=== PATIENT | female | born 1940 | race Caucasian/White ===

== ENCOUNTER 2022-04-14 07:46 | Day surgery (SDC) | payer OTHER ==
--- NOTE | 2022-04-09 15:03 | RAD REPORT ---
EXAM DESCRIPTION: RAD - Chest Pa And Lat (2 Views) - 04/09/2022 2:56 pm CLINICAL HISTORY: Pre op pending lithotripsy Chest pain. COMPARISON: Abdomen 1 View ([facility]) dated 03/05/2022 FINDINGS: The lungs are clear. The heart is upper limit of normal in size. No displaced fractures.
[2022-04-09 16:15] LABS: Lymphocytes % 31.6 % (15.3-44.8); MPV 9.7 fL (7.6-11.3)
[2022-04-09 16:21] LABS: Protime INR 1.38
[2022-04-09 16:24] LABS: Potassium 3.5 mmol/L (3.5-5.1)
[2022-04-14] MEDS ORDERED: Ringers Lactate 1,000 ML IV ONE (08:11)
[2022-04-14] MEDS ORDERED: propofoL 200 MG/20 ML VIAL IV ONE (09:57)
[2022-04-14] MEDS ORDERED: FENTANYL CITR 100 MCG/2 ML ONE (09:58)
[2022-04-14] MEDS ORDERED: LIDOCAINE 1% MPF 5 ML VIAL ONE (09:59)
[2022-04-14] MEDS ORDERED: CEFAZOLIN SODIUM 1 GM/VIAL ONE (10:27)
[2022-04-14] MEDS ORDERED: dexAMETHasone 10 MG/ML VIAL ONE (10:49)
[2022-04-14] MEDS ORDERED: KETOROLAC 30 MG/ML INJ ONE (10:52)
[2022-04-14] MEDS ORDERED: NS 0.9% VIAL 10 ML ONE (10:52)
[2022-04-14] MEDS ORDERED: ONDANSETRON 4 MG/2 ML VIAL ONE (10:52)
[2022-04-14] MEDS ORDERED: EPHEDRINE SULF 50 MG/ML VIAL ONE (10:52)
[2022-04-14] MEDS ORDERED: CODEINE 30MG/APAP 300MG TAB PO PRN (11:22)
[2022-04-14 12:19] VITALS: TEMP 97
[2022-04-14 14:32] VITALS: BP 140/82; O2SAT 98
--- NOTE | 2022-04-14 22:06 | OP ---
Surgeon: ANTONINO FAUSTIN Preoperative Diagnoses: 1.15 mm left nephrolithiasis. 2.Gross hematuria. Postoperative Diagnoses: 1.15 mm left nephrolithiasis. 2.Gross hematuria. Principal Procedures: 1.Left extracorporeal shock wave lithotripsy. a.Approximately 2600 shocks, power 1-7. b.Approximately 400 shocks, power 9. Indication For Procedure: Ms. Schmitt is an 82-year-old woman with multiple medical comorbidities and atrial fibrillation on Xarelto, who last took a dose of it on Wednesday, presents for definitive manage ment of a very large left nonobstructing stone. She had been given permission to hold the Eliquis ac cordingly and since the stone was a likely source of her gross hematuria, having completed negative c ystoscopic evaluation, management of the stone was desirable. Procedure In Detail: The patient was consented in the preoperative holding area before being transfe rred to the operative suite, where general anesthesia was induced. She was placed supine on the proc edure table, padded and secured appropriately, and a water bath was placed beneath her flank. Target ing was then performed fluoroscopically in the AP and left to right dimension and shockwave lithotrip sy was then begun at 1 hertz with a power increase between 1 and 7 over the course of about 500 shock s. Over the course of the next 1500 shocks delivered, the stone was noted to fragment significantly, but the core of the stone seemed to remain somewhat intact though more dissolution. An additional 5 00 shocks was delivered again at 1 hertz after we had increased the rate to 1.5 hertz for the prior 1 500 shocks, and continued shockwave lithotripsy was delivered until approximately 2600 shocks had bee n given. Because there was still some density present and given the desire to avoid having to return the patient for additional treatment of the stone because of her need for anticoagulant therapy, we then increased the power to the maximum setting of 9 and delivered an additional approximately 400 sh ocks to the stone residual. In the end, the stone was significantly fragmented from prior, though th ere was still some density remaining and after 3000 shocks, the case was concluded. The patient was then awakened from general anesthesia, transferred to a stretcher, and then transferr ed to the recovery room in good condition. Complications: None. Discharge Disposition: She should follow up in the [facility] in about 1-2 months' time and obta in a pre-clinic [facility]. In the meantime, she will be asked to strain her urine and collect any stone du st for analysis. Subsequent management of her Xarelto will be described in her postoperative instruc tions. JOSE MANUEL/VANIA Voice ID: [id number] Report ID: [id number]
== END 2022-04-14 13:20 | disposition home or self-care (01) ==
LOC: OR 07:46
PROVIDERS: ATTEND Urology
PROC: 0TF4XZZ Fragmentation in Left Kidney Pelvis, External Approach (ICD-10-PCS; principal; 2022-04-14 09:30)
DX: N20.0 Calculus of kidney (principal); R31.0 Gross hematuria; I10 Essential (primary) hypertension; E78.00 Pure hypercholesterolemia, unspecified; E03.9 Hypothyroidism, unspecified; I48.91 Unspecified atrial fibrillation; Z20.822 Contact with and (suspected) exposure to COVID-19
CPT/HCPCS: 87088; 85025; 87086; 80048; 36415; 85610; 71046; 50590 ×2; U0003; J2704; J3010; J1100; J7120; J2405; J0690